=== PATIENT | female | born 1950 | race Hispanic/Latino ===

== ENCOUNTER → 2017-10-03 | Day surgery (SDC) | payer MEDICARE, OTHER ==
[2017-10-02 10:54] LABS: BASOPHILS # (AUTO) 0.1 (0.0-0.1); BASOPHILS % 1.3 % (0.0-1.0); EOSINOPHILS # (AUTO) 0.2 (0.0-0.4); EOSINOPHILS % 2.4 % (0.0-6.0); HEMATOCRIT 42.9 % (34.2-44.1); HEMOGLOBIN 14.1 g/dL (12.0-16.0); LYMPHOCYTES # (AUTO) 3.7 (1.0-3.2); LYMPHOCYTES % 51.2 % (18.0-39.1); MEAN CORPUSCULAR HEMOGLOBIN 29.4 pg (28-32); MEAN CORPUSCULAR HGB CONC 32.9 g/dL (31-35); MEAN CORPUSCULAR VOLUME 89.6 fL (81-99); MONOCYTES # (AUTO) 0.4 (0.2-0.8); MONOCYTES % 5.3 % (4.4-11.3); NEUTROPHILS # (AUTO) 2.8 (2.1-6.9); NEUTROPHILS % 39.5 % (38.7-80.0); PLATELET COUNT 244 x10e3/uL (140-360); RED BLOOD COUNT 4.79 x10e6/uL (3.6-5.1); RED CELL DISTRIBUTION WIDTH 11.9 % (11.7-14.4)
--- NOTE | 2017-10-02 11:18 | Diagnostic Imaging Report ---
PROCEDURE:CHEST 2 VIEWS TECHNIQUE:PA and lateral chest INDICATION:Preoperative evaluation COMPARISON:None. FINDINGS: Lungs are clear and symmetrically inflated. No pleural effusions. Normal heart size and mediastinal contour. Intact skeleton. CONCLUSION: No acute abnormality. Dictated by: Josesito Orourke M.D. on 10/02/2017 at 11:25 Electronically approved by: Josesito Orourke M.D. on 10/02/2017 at 11:25
[~2017-10-03] MED LIST: ACETAMINOPHEN 1000 MG/100 ML 100 ML IV ONE; ASPIR-LOW81 MG PO; BUPIVACAINE HCL 0.5% 10ML MPF VIAL INJ ONE; CALCIUM600 MG PO; CEFAZOLIN SOD 1 GM/NS 50ML 50 ML IV ONE; DESFLURANE 240 ML BTL INH ONE; DEXAMETHASONE SOD PHOS INJ 4 MG/ML VIAL ONE; DIOVAN160 MG PO; DIOVAN80 MG PO; FENTANYL CITRATE/PF 100MCG/2 ML INJ ONE; FOLIC ACID1 MG PO; GABAPENTIN300 MG PO; IRON PO; KETOROLAC TROMETHAMINE 30 MG/ML VIAL ONE; LIDOCAINE HCL 2% LOCAL INJ 5 ML SDV VIAL INJ ONE; MIDAZOLAM HCL 2 MG/2 ML VIAL ONE; MUPIROCIN 2% OINT 22 GM TUBE ONE; ONDANSETRON HCL INJ 2 MG/ML VIAL ONE; PRAVASTATIN SOD20 MG PO; PROPOFOL IV EMULSION 10 MG/ML 20 ML VIAL ONE; SYNTHROID PO; VITAMIN B12 PO; VITAMIN C PO; WELCHOL625 MG PO; XYZAL5 MG PO; ZETIA10 MG PO
--- NOTE | 2017-10-04 07:44 | Operative Report ---
DATE OF PROCEDURE: October 03, 2017 PREOPERATIVE DIAGNOSIS: Stenosing tenosynovitis of right thumb, left thumb, right long finger. POSTOPERATIVE DIAGNOSIS: Stenosing tenosynovitis of right thumb, left thumb, right long finger. OPERATION PERFORMED: Tenovaginotomy of right thumb, left thumb, and right long finger. ANESTHESIA: General. HISTORY: The patient is a 67-year-old right hand-dominant female who presents with stenosing tenosynovitis of the right finger that is recalcitrant to conservative treatment. The risks, benefits, and alternatives of treatment were discussed with the patient and she is prepared to undergo the procedure as outlined. DESCRIPTION OF PROCEDURE: The patient was brought to the operating theater. After the induction of adequate general/regional anesthesia, the patient was prepped and draped in a supine position. A time out was performed by the entire operating room team. An oblique incision was marked out over the A1 bre of the right long finger. The upper extremity was exsanguinated, and a tourniquet was inflated to a pressure of 250 mmHg. The incision was made through the skin and subcutaneous tissues. All venous tributaries were controlled with bipolar cautery. The incision was deepened through the palmar tissues. The neurovascular bundles on the radial and ulnar sides of the flexor tendon sheath were identified and retracted away from the flexor tendon sheath and preserved. The A1 bre of the affected finger was identified and incised longitudinally, taking care to protect and preserve the flexor tendons within the sheath. After the complete length of the bre had been transected, the tendons were placed in a range of motion. There was noted to be good motion without any locking. The wound was then copiously irrigated with bacteriostatic saline and closed with 5-0 nylon in an interrupted horizontal mattress fashion. A Marcaine field block was performed at the operative site. An oblique incision was marked out over the A1 bre of the right thumb. The upper extremity was exsanguinated, and a tourniquet was inflated to a pressure of 250 mmHg. The incision was made through the skin and subcutaneous tissues. All venous tributaries were controlled with bipolar cautery. The incision was deepened through the palmar tissues. The neurovascular bundles on the radial and ulnar sides of the flexor tendon sheath were identified and retracted away from the flexor tendon sheath and preserved. The A1 bre of the affected finger was identified and incised longitudinally, taking care to protect and preserve the flexor tendons within the sheath. After the complete length of the bre had been transected, the tendons were placed in a range of motion. There was noted to be good motion without any locking. The wound was then copiously irrigated with bacteriostatic saline and closed with 5-0 nylon in an interrupted horizontal mattress fashion. A Marcaine field block was performed at the operative site. The tourniquet was deflated. All the fingers pinked up nicely. A sterile bulky conforming bandage was applied to the hand. An oblique incision was marked out over the A1 bre of the left thumb. The upper extremity was exsanguinated, and a tourniquet was inflated to a pressure of 250 mmHg. The incision was made through the skin and subcutaneous tissues. All venous tributaries were controlled with bipolar cautery. The incision was deepened through the palmar tissues. The neurovascular bundles on the radial and ulnar sides of the flexor tendon sheath were identified and retracted away from the flexor tendon sheath and preserved. The A1 bre of the affected finger was identified and incised longitudinally, taking care to protect and preserve the flexor tendons within the sheath. After the complete length of the bre had been transected, the tendons were placed in a range of motion. There was noted to be good motion without any locking. The wound was then copiously irrigated with bacteriostatic saline and closed with 5-0 nylon in an interrupted horizontal mattress fashion. A Marcaine field block was performed at the operative site. The tourniquet was deflated. All the fingers pinked up nicely. A sterile bulky conforming bandage was applied to the hand, and the patient was returned to the recovery room in satisfactory condition and was discharged with a postoperative instruction sheet as well as a followup appointment. Job#: [id number] ROXANA
== END | disposition home or self-care (01) ==
LOC: OR 06:28
PROVIDERS: ATTEND Plastic Surgery
DX: M65.311 Trigger thumb, right thumb (principal); M65.312 Trigger thumb, left thumb; M65.331 Trigger finger, right middle finger; I10 Essential (primary) hypertension; G47.30 Sleep apnea, unspecified; Z01.810 Encounter for preprocedural cardiovascular examination; Z01.812 Encounter for preprocedural laboratory examination; Z01.818 Encounter for other preprocedural examination; Z79.82 Long term (current) use of aspirin; Z86.73 Personal history of transient ischemic attack (TIA), and cerebral infarction without residual deficits
CPT/HCPCS: 26055 ×3; 36415; 71020; 85025; 93005; J1100; J1885; J2001; J2250; J2405

== ENCOUNTER → 2018-06-15 | Outpatient (CLI) | payer MEDICARE, OTHER ==
[~2018-06-15] MED LIST changes: -ACETAMINOPHEN 1000 MG/100 ML 100 ML IV ONE; -BUPIVACAINE HCL 0.5% 10ML MPF VIAL INJ ONE; -CEFAZOLIN SOD 1 GM/NS 50ML 50 ML IV ONE; -DESFLURANE 240 ML BTL INH ONE; -DEXAMETHASONE SOD PHOS INJ 4 MG/ML VIAL ONE; -FENTANYL CITRATE/PF 100MCG/2 ML INJ ONE; +IOPAMIDOL 370 MG/ML 200 ML INFUS..BTL INJ ONE; -KETOROLAC TROMETHAMINE 30 MG/ML VIAL ONE; -LIDOCAINE HCL 2% LOCAL INJ 5 ML SDV VIAL INJ ONE; -MIDAZOLAM HCL 2 MG/2 ML VIAL ONE; -MUPIROCIN 2% OINT 22 GM TUBE ONE; -ONDANSETRON HCL INJ 2 MG/ML VIAL ONE; -PROPOFOL IV EMULSION 10 MG/ML 20 ML VIAL ONE; +SODIUM CHLORIDE 0.9% 250ML 250 ML ONE
--- NOTE | 2018-06-15 09:20 | Diagnostic Imaging Report ---
PROCEDURE:X-RAY ABDOMEN - KUB COMPARISON:None. INDICATIONS:CALCULUS OF KIDNEY FINDINGS: No suspicious calcifications project over the renal shadows, though evaluation is limited secondary to overlying bowel gas and fecal contents. Multiple left pelvic calcifications likely reflect phleboliths. Bilateral tubal ligation devices. Surgical clips project over the right upper quadrant, compatible with prior cholecystectomy. Bowel gas pattern is nonobstructive. Regional skeletal structures are intact. CONCLUSION: No plain radiographic evidence of urolithiasis. Patient is also scheduled for CT abdomen and pelvis with and without contrast 06/15/2018, which will be separately reported. Dictated by: Omar Mcbride M.D. on 06/15/2018 at 9:25 Electronically approved by: Omar Mcbride M.D. on 06/15/2018 at 9:25
[2018-06-15 10:10] LABS: BLOOD UREA NITROGEN 9 mg/dL (7-26); BUN/CREATININE RATIO 12 (6-25); CREATININE, SERUM 0.75 mg/dL (0.57-1.11); EST GLOMERULAR FILTRATION RATE > 60 ML/MIN (60-)
--- NOTE | 2018-06-15 11:29 | Diagnostic Imaging Report ---
PROCEDURE: CT ABDOMEN \T\ PELVIS W/WO CONTRAST TECHNIQUE: The abdomen and pelvis were scanned utilizing a multidetector helical scanner from the diaphragm to the lesser trochanter before and after the IV administration 150 cc of Isovue 370 and the oral administration of water. Coronal and sagittal multiplanar reformations were obtained. CT urography protocol was performed using split bolus technique in prone position. 3D volume renderings were created. COMPARISON: None. INDICATIONS: HEMATURIA FINDINGS: LOWER THORAX: Mild dependent atelectasis. HEPATOBILIARY: Diffuse hypoattenuation of the liver, compatible with steatosis. Calcified granuloma in the posterior medial right hepatic lobe. No focal hepatic lesions. No biliary ductal dilatation. Cholecystectomy. SPLEEN: No splenomegaly. PANCREAS: No focal masses or ductal dilatation. ADRENALS: No adrenal nodules. KIDNEYS/URETERS: No hydronephrosis, stones, or solid mass lesions. At least partially duplex left renal collecting system with two ureters visualized to the proximal ureter. No filling defects are present in the upper collecting systems or opacified portions of the ureter. PELVIC ORGANS/BLADDER: No filling defects in the bladder. Suggestion of a 1.4 cm hyperattenuating lesion in the endometrial cavity (sagittal post-contrast image 87). PERITONEUM / RETROPERITONEUM: No free air or fluid. LYMPH NODES: No lymphadenopathy. VESSELS: Unremarkable. GI TRACT: Small hiatal hernia. Portion of the gastric fundus appears to surround the GE junction which may reflect a prior fundoplication wrap. No distention or wall thickening. BONES AND SOFT TISSUES: Unremarkable. IMPRESSION: 1. No urolithiasis, renal masses, or filling defects in the opacified portions of the urinary collecting system. 2. Partially duplex left renal collecting system with two ureters visualized to the level of the proximal ureter. 3. Possible 1.4 cm endometrial polyp. Recommend further evaluation with pelvic ultrasound. 4. Hepatic steatosis. Dictated by: Ge Miller M.D. on 06/15/2018 at 11:33 Electronically approved by: Ge Miller M.D. on 06/15/2018 at 11:33
== END ==
LOC: CT 08:08
PROVIDERS: ATTEND Urology
DX: R31.21 Asymptomatic microscopic hematuria (principal); N20.0 Calculus of kidney
CPT/HCPCS: 36415; 74018; 74178; 82565; 84520; J7050; Q9967